=== PATIENT | male | born 1955 | race Caucasian/White ===

== ENCOUNTER → 2022-01-14 14:25 | Outpatient (CLI) | payer OTHER, SELFPAY ==
--- NOTE | 2022-01-14 14:36 | DI.CT.S_ITS ---
PROCEDURE: CT ABDOMEN PELVIS WO/W CON INDICATIONS: Asymptomatic microscopic hematuria TECHNIQUE: Optional 5 mm thick noncontrast images acquired from the diaphragm to the symphysis pubis. After the administration of intravenous contrast, 5 mm thick images acquired from the diaphragm to the symphysis pubis after a 10-minute delay. 2 mm thick coronal and sagittal reformats were then performed of the kidneys and ureters. For radiation dose reduction, the following was used: automated exposure control, adjustment of mA and/or kV according to patient size. COMPARISON: None. FINDINGS: Image quality: Excellent. Lung bases: Bibasilar atelectasis and scarring. Heart size is normal. Coronary atherosclerotic vascular calcifications are noted. Urinary system: Both kidneys are normal in size, without right-sided hydronephrosis on pre-contrast images. Punctate bilateral renal stones are seen measuring up to 4 mm on each side. There is mild left hydroureteronephrosis. No perinephric fat stranding on either side. There is normal bilateral renal enhancement. Small bilateral renal hypodensities which are too small to accurately characterize but statistically represent simple renal cysts. Renal calyces appear normal in morphology when filled with contrast. Opacified portions the right ureter demonstrates normal caliber. No right-sided ureteral stone. On the left, there are 2 adjacent obstructing ureteral stones in the distal left ureter. The larger, more distal stone measures approximately 0.9 x 0.7 cm in axial cross-sectional dimension and approximately 800 Hounsfield units in density. Bladder wall thickness is normal. No calcified bladder stones. Other solid organs: Liver is normal in size and enhancement. Gallbladder is unremarkable . Biliary system is non dilated. Pancreas enhances normally. No perinephric stranding. Spleen is normal in size and enhancement. No adrenal nodules. Peritoneum and bowel: Bowel loops demonstrate normal wall thickness and caliber. No free fluid or air. Colonic diverticulosis without acute diverticulitis. Nodes and vessels: No retroperitoneal or mesenteric adenopathy by size criteria. Aorta and inferior vena cava are normal in size. Scattered atherosclerotic calcifications of the abdominal aorta and iliac vessels without aneurysmal dilatation. The inferior vena cava appears patent. Abdominal wall: No ventral hernias. Pelvis: No pathologic free pelvic fluid. No inguinal hernias or adenopathy. Bones: No acute vertebral body compression fractures. Multilevel spondylitic changes throughout the imaged spine. No suspicious osseous lesions. IMPRESSION: 1. Multiple left renal stones measuring up to 4 mm in size with mild left hydroureteronephrosis secondary to 2 adjacent distal left ureteral stones measuring up to 9 mm in size. No significant periureteral or perinephric stranding on the left. 2. Multiple nonobstructing right renal stones measuring up to 4 mm in size. No hydroureteronephrosis or perinephric stranding. 3. No suspicious urothelial abnormalities. 4. Colonic diverticulosis without acute diverticulitis. 5. Atherosclerotic vascular disease. 6. Other chronic findings as above. Dictated by: Victor Hugo Hinds M.D. on 01/14/2022 at 17:30 Approved by: Victor Hugo Hinds M.D. on 01/14/2022 at 17:40
== END ==
PROVIDERS: Referring Provider Family Medicine; Visit Provider Family Medicine
DX: N13.2 Hydronephrosis with renal and ureteral calculous obstruction (principal); R31.21 Asymptomatic microscopic hematuria; I25.10 Atherosclerotic heart disease of native coronary artery without angina pectoris; K57.90 Diverticulosis of intestine, part unspecified, without perforation or abscess without bleeding; I70.0 Atherosclerosis of aorta
CPT/HCPCS: 74178; Q9967